=== PATIENT | female | born 1980 | race Caucasian/White ===

== ENCOUNTER 2017-10-11 06:02 | Emergency (ER) | payer SELFPAY ==
[2017-10-11 06:16] VITALS: BP 123/94; BMI 22.1
--- NOTE | 2017-10-11 06:19 | DR.GENAD ---
HPI - PCP Primary Care Physician: MENSAH - Complaint/Symptoms Chief Complaint:: LOWER ABD PAIN ONSET TONIGHT Self Treatment fo Chief Complaint: NONE - Source History Provided: Patient - Mode of Arrival Mode of Arrival: Wheelchair - Timing Onset of Chief Complaint: 10/11/17 PMH - PMH Past Medical History: No Past Surgical History: Yes Past Surgical History Comment: CAT SCRATCH FEVER - Family History History of Family Medical Conditions: No - Social History Does patient currently use any type of tobacco product: Yes Have you used tobacco products in the last 12 months: Yes Type of Tobacco Use: Cigarettes Does any household member use tobacco: No Alcohol Use: None Do you use any recreational Drugs:: Yes (WEED) Lives With: Friend Lives Where: Home - infectious screening In the last 2 months have you had wt loss of >10#?: NO Have you had fever, night sweats or hemotysis?: No Have you traveled outside the country in the last 6 months?: No Isolation: Standard ROS - Review of Systems Eyes: No Symptoms Reported ENTM: No Symptoms Reported Respiratoy: No Symptoms Reported Cardiovascular: No Symptoms Reported Gastrointestinal/Abdominal: Abdominal Pain Genitourinary: No Symptoms Reported Neurological: No Symptoms Reported Musculoskeletal: No Symptoms Reported Integumentary: No Symptoms Reported Hematologic/Lymphatic: No Symptoms Reported Endocrine: No Symptoms Reported Psychiatric: No Symptoms Reported All Other Systems: Reviewed and Negative PE - Vital Signs Vitals: Temperature 97.7 F Pulse Rate 86 Respiratory Rate 20 Blood Pressure 123/94 O2 Sat by Pulse Oximetry 100 - General General Appearance: Alert, In No Apparent Distress, Anxious - Head Head Exam: Normal Inspection, Atraumatic - Eyes Eye exam: Normal Appearance, PERRL, EOMI - ENT ENT Exam: Normal Exam External Ear Exam: Normal External Inspection TM/Canal Exam: Bilateral Normal Nose Exam: Normal Nose Exam Mouth Exam: Normal Inspection Throat Exam: Normal Inspection - Neck Neck Exam: Normal Inspection - Chest Chest Inspection: Normal Inspection, Symmetric Chest Wall Rise - Respiratory Respiratory Exam: Normal Lung Sounds Bilat Respiratory Exam: Bilateral Clear to Auscultation - Cardiovascular Cardiovascular Exam: Regular Rate, Normal Rhythm - Abdominal Exam Abdominal Exam: Normal Inspection, Normal Bowel Sounds Abdominal Tenderness: negative: RUQ, RLQ, LUQ, LLQ, Epigastrium, Suprapubic, Diffuse, Mild, Moderate, Severe, Other - Extremities Extremities Exam: Normal Inspection, Full ROM - Back Back Exam: Normal Inspection, Full ROM - Neurologic Neurological Exam: Alert, Oriented X3, CN II-XII Intact - Psychiatric Psychiatric Exam: Normal Affect - Skin Skin Exam: Warm, Dry, Intact Course - Reevaluation 1st: Improved ROR - Labs Reviewed Result Diagrams: 10/11/17 06:37 10/11/17 06:37 Laboratory: WBC 8.6 X10^3/uL (3.6-10.0) 10/11/17 06:37 RBC 4.77 X10^6/uL (3.5-5.4) 10/11/17 06:37 Hgb 14.1 g/dL (12.0-16.0) 10/11/17 06:37 Hct 41.4 % (36.0-47.0) 10/11/17 06:37 MCV 86.7 fL (80.0-100.0) 10/11/17 06:37 MCH 29.5 pg (27.0-34.0) 10/11/17 06:37 MCHC 34.0 g/dL (33.0-35.0) 10/11/17 06:37 RDW 13.2 % (11.6-16.5) 10/11/17 06:37 Plt Count 232 X10^3/uL (150.0-450.0) 10/11/17 06:37 MPV 9.8 fL (7.4-11.0) 10/11/17 06:37 Neut % (Auto) 68.4 % (42.0-75.0) 10/11/17 06:37 Lymph % (Auto) 22.1 % (21.0-51.0) 10/11/17 06:37 Coos % (Auto) 7.1 % (0.0-13.0) 10/11/17 06:37 Eos % (Auto) 1.3 % (0.9-2.9) 10/11/17 06:37 Baso % (Auto) 1.1 % (0.2-1.0) H 10/11/17 06:37 Neut # (Auto) 5.9 x10^3/uL (2.2-4.8) H 10/11/17 06:37 Lymph # (Auto) 1.9 X10^3/uL (1.3-2.9) 10/11/17 06:37 [place]os # (Auto) 0.6 x10^3/uL (0.3-0.8) 10/11/17 06:37 Eos # (Auto) 0.1 x10^3/uL (0.0-0.2) 10/11/17 06:37 Baso # (Auto) 0.1 X10^3/uL (0.0-0.1) 10/11/17 06:37 Absolute Nucleated RBC 0.1 /100WBC 10/11/17 06:37 Sodium 134 mmol/L (136-145) L 10/11/17 06:37 Corrected Sodium 134 mmol/L (136-145) L 10/11/17 06:37 Potassium 3.8 mmol/L (3.5-5.1) 10/11/17 06:37 Chloride 98 mmol/L (98-107) 10/11/17 06:37 Carbon Dioxide 21.4 mmol/L (21-32) 10/11/17 06:37 BUN 9 mg/dL (7-18) 10/11/17 06:37 Creatinine 1.08 mg/dL (0.55-1.02) H 10/11/17 06:37 Est GFR (MDRD) Af Amer > 60 (>60) 10/11/17 06:37 Est GFR (MDRD) Non-Af > 60 (>60) 10/11/17 06:37 Glucose 112 mg/dL (65-99) H 10/11/17 06:37 Calcium 8.7 mg/dL (8.5-10.1) 10/11/17 06:37 Corrected Calcium TNP 10/11/17 06:37 Total Bilirubin 0.60 mg/dL (0.2-1.0) 10/11/17 06:37 AST 12 Units/L (15-37) L 10/11/17 06:37 ALT 15 Units/L (12-78) 10/11/17 06:37 Alkaline Phosphatase 57 Units/L (46-116) 10/11/17 06:37 C-Reactive Protein 1.00 mg/L (0-3.0) 10/11/17 06:37 Total Protein 7.9 g/dL (6.4-8.2) 10/11/17 06:37 Albumin 4.1 g/dL (3.4-5.0) 10/11/17 06:37 Globulin 3.8 g/dL (2.5-4.5) 10/11/17 06:37 Albumin/Globulin Ratio 1.1 Ratio (1.1-2.1) 10/11/17 06:37 - XRAY XRAY Interpreted by: Radiologist (Acute Abdo: There is mild hyperinflation of the lungs without infiltrate,CHF, pleural fluid of pneumothorax. Osseous structures are intact. No evidence of free intraperitoneal air or fluid is seen. Large amount of stoo is present throughout colon. No opaque stone is seen. There are vascular calcification present wtihin the pelvis. Osseous structures are intact. Impression: Mild hyperinflation of the lungs without acute abnormality. Increased stool present throughout the colon. No bowel obstruction or perforation is seen.) - Diagnosis Discharge Problem: Constipation Qualifiers: Constipation type: slow transit constipation Qualified Code(s): K59.01 - Slow transit constipation - Discharge Plan Condition: Stable - Follow ups/Referrals Follow ups/Referrals: MAGALI MENSAH [Primary Care Provider] - 3 days - Instructions
[2017-10-11] MEDS ORDERED: TORADOL 30 MG VIAL ONE (06:20)
[2017-10-11] MEDS ORDERED: TORADOL 30 MG VIAL IVP ONE (06:20)
[2017-10-11] MEDS ORDERED: NS 1000 ML 1,000 ML ONE (06:20)
[2017-10-11] MEDS ORDERED: NS 1000 ML 1,000 ML IV ONE (06:20)
[2017-10-11] MEDS ORDERED: ZOFRAN INJ 4 MG VIAL IVP ONE (06:21)
[2017-10-11] MEDS ORDERED: ZOFRAN INJ 4 MG VIAL ONE (06:22)
[2017-10-11 06:54] LABS: BASOPHILS # (AUTO) 0.1 X10^3/uL (0.0-0.1); BASOPHILS % (AUTO) 1.1 % (0.2-1.0); EOSINOPHILS # (AUTO) 0.1 x10^3/uL (0.0-0.2); EOSINOPHILS % (AUTO) 1.3 % (0.9-2.9); HEMATOCRIT 41.4 % (36.0-47.0); HEMOGLOBIN 14.1 g/dL (12.0-16.0); LYMPHOCYTES # (AUTO) 1.9 X10^3/uL (1.3-2.9); LYMPHOCYTES % (AUTO) 22.1 % (21.0-51.0); MEAN CORPUSCULAR HEMOGLOBIN 29.5 pg (27.0-34.0); MEAN CORPUSCULAR VOLUME 86.7 fL (80.0-100.0); MEAN PLATELET VOLUME 9.8 fL (7.4-11.0); MONOCYTES # (AUTO) 0.6 x10^3/uL (0.3-0.8); MONOCYTES % (AUTO) 7.1 % (0.0-13.0); NEUTROPHILS # (AUTO) 5.9 x10^3/uL (2.2-4.8); NEUTROPHILS % (AUTO) 68.4 % (42.0-75.0); PLATELET COUNT 232 X10^3/uL (150.0-450.0); RED BLOOD COUNT 4.77 X10^6/uL (3.5-5.4); RED CELL DISTRIBUTION WIDTH 13.2 % (11.6-16.5); WHITE BLOOD COUNT 8.6 X10^3/uL (3.6-10.0)
[2017-10-11 07:07] LABS: ALANINE AMINOTRANSFERASE 15 Units/L (12-78); ALBUMIN 4.1 g/dL (3.4-5.0); ALKALINE PHOSPHATASE 57 Units/L (46-116); ASPARTATE AMINO TRANSFERASE 12 Units/L (15-37); BLOOD UREA NITROGEN 9 mg/dL (7-18); CALCIUM 8.7 mg/dL (8.5-10.1); CARBON DIOXIDE 21.4 mmol/L (21-32); CHLORIDE 98 mmol/L (98-107); COR NA(FOR HYPERGLY) 134 mmol/L (136-145); CREATININE 1.08 mg/dL (0.55-1.02); SODIUM 134 mmol/L (136-145); TOTAL PROTEIN 7.9 g/dL (6.4-8.2); eGFR BLACK RACES > 60 (>60); eGFR NON BLACK RACES > 60 (>60)
--- NOTE | 2017-10-11 07:12 | RAD ---
HISTORY: Lower abdominal pain Study: Abdomen series with PA chest Comparison: No priors Technique: KUB and upright views the abdomen provided as well as a PA chest. Findings: Trachea is midline. Heart size is normal. There is mild hyperinflation of the lungs without infiltrat e, CHF, pleural fluid or pneumothorax. Osseous structures are intact. No evidence of free intraperitoneal air or fluid is seen. Large amount of stool is present throughout colon. No opaque stone is seen. There are vascular calcifications present within the pelvis. Osseous structures are intact. IMPRESSION: Mild hyperinflation of the lungs without acute abnormality. Increased stool present throughout the colon. No bowel obstruction or perforation is seen. Reported By:
[2017-10-11 07:16] LABS: BILIRUBIN,URINE NEGATIVE (NEGATIVE); BLOOD/HEMOGLOBIN,URINE 5+ (NEGATIVE); GLUCOSE, URINE 3+ (NEGATIVE); KETONES,URINE 2+ (NEGATIVE); LEUKOCYTE ESTERASE ,URINE 3+ (NEGATIVE); NITRITES,URINE NEGATIVE (NEGATIVE); PROTEIN,URINE NEGATIVE (NEGATIVE); UROBILINOGEN,URINE NORMAL (NORMAL)
[2017-10-11 07:22] LABS: APPEARANCE,URINE HAZY (CLEAR); COLOR,URINE YELLOW (YELLOW)
[2017-10-11 07:23] LABS: BACTERIA,URINE TRACE /HPF (NEGATIVE); SQUAMOUS EPITHELIAL CELL,UR FEW /HPF (NEGATIVE)
== END 2017-10-11 07:38 | disposition home or self-care (01) ==
LOC: ER 06:02
DX: N39.0 Urinary tract infection, site not specified (principal); F15.20 Other stimulant dependence, uncomplicated; F12.90 Cannabis use, unspecified, uncomplicated; K59.01 Slow transit constipation
CPT/HCPCS: 36415; 74022; 80053; 80307; 81001; 85025; 86140; 96365; 96374; 96375; 99283; A4222; G0434; J1885; J2405